=== PATIENT | female | born 1975 | race Caucasian/White ===

== ENCOUNTER 2021-02-23 10:55 | Emergency (ER) | payer OTHER ==
[~2021-02-23] VITALS: Ht 160 cm; Wt 90.0 kg
[~2021-02-23 10:55] MED LIST: LIRA0.6P SQ; LISI1POW MC; METF100P4 MC; OMEG1CAP2 PO
[2021-02-23 11:26] LABS: BASO % 1 % (0-3); EOS # 0.1 x10^3/uL (0.0-0.7); EOS % 2 % (0-3); HEMATOCRIT 25.4 % (36.0-47.0); HEMOGLOBIN 7.5 g/dL (12.0-15.5); LYMPH % 19 % (24-48); MEAN CORPUSCULAR HEMOGLOBIN 19 pg (25-35); MEAN CORPUSCULAR HGB CONC 30 g/dL (31-37); MEAN CORPUSCULAR VOLUME 63 fL (79-100); MONO # 0.3 x10^3/uL (0.0-1.1); MONO % 6 % (0-9); NEUT # 3.8 x10^3uL (1.8-7.7); NEUT % 72 % (31-73); PLATELET COUNT 277 x10^3/uL (140-400); RED BLOOD COUNT 4.01 x10^6/uL (3.50-5.40); WHITE BLOOD COUNT 5.3 x10^3/uL (4.0-11.0)
[2021-02-23] MEDS ORDERED: IV NORMAL SALINE 1,000ML 1,000 ML IV ONE (11:30)
[2021-02-23] MEDS ORDERED: ASPIRIN CHEWABLE 81 MG TABLET. PO ONE (11:30)
--- NOTE | 2021-02-23 11:33 | PHYS DOC ---
Past History Past Medical History: Hypertension Additional Past Medical Histor: tachycardia Past Surgical History: Gastric Bypass, Other Additional Past Surgical Histo: CHildhood open heart, Alcohol Use: None General Adult EDM: Chief Complaint: CHEST PAIN HPI: HPI: 46-year-old female presents via EMS with palpitations and chest pain. The patient started having chest pressure discomfort around 840 this morning. She was at work. She thought it was indigestion so she took some antacids. This did not help. She describes the pain as kind of a central pressure feeling. She had some mild shortness of breath but no diaphoresis. Her coworkers were concerned so they called EMS. When EMS arrived the patient had a very elevated heart rate. During transport her heart rate was in the 170s and her blood pressure was low. They gave her 6 mg of adenosine. This seemed to be effective. The patient's heart rate and blood pressure normalized prior to arrival. Patient states she felt much better after getting the adenosine. She has been feeling well prior to this. She had no other complaints. Denies fever or chills. She was diagnosed by a instrumentation and controls technician with some kind of tachyarrhythmia but has not seen them in the last 2 years. She has been on a steady dose of carvedilol without incident. Review of Systems: Review of Systems: Constitutional: Denies fever or chills Eyes: Denies change in visual acuity HENT: Denies nasal congestion or sore throat Respiratory: Mild shortness of breath Cardiovascular: Chest pain GI: Denies abdominal pain, nausea, vomiting, bloody stools or diarrhea : Denies dysuria Musculoskeletal: Denies back pain or joint pain Integument: Denies rash Neurologic: Denies headache, focal weakness or sensory changes Endocrine: Denies polyuria or polydipsia Lymphatic: Denies swollen glands Psychiatric: Denies depression or anxiety Current Medications: Current Meds: Current Medications Medications (Trade) Dose Ordered Sig/Leonidas Start Time Stop Time Status Last Admin Dose Admin Aspirin (Aspirin Chewable) 324 mg 1X ONCE 02/23/21 11:30 02/23/21 11:31 02/23/21 11:23 324 MG Sodium Chloride 1,000 ml @ 1,000 mls/hr 1X ONCE 02/23/21 11:30 02/23/21 12:29 02/23/21 11:24 1,000 MLS/HR Allergies: Allergies: Allergies Coded Allergies Type Severity Reaction Last Updated Verified No Known Drug Allergies 02/23/21 No Physical Exam: PE: Constitutional: Well developed, well nourished, obese, no acute distress, non- toxic appearance. [] HENT: Normocephalic, atraumatic, bilateral external ears normal, oropharynx moist, no oral exudates, nose normal. [] Eyes: PERRLA, EOMI, conjunctiva normal, no discharge. [] Neck: Normal range of motion, no tenderness, supple, no stridor. [] Cardiovascular: Heart rate 86, regular rhythm, no murmur [] Lungs & Thorax: Bilateral breath sounds clear to auscultation [] Abdomen: Bowel sounds normal, soft, no tenderness, no masses, no pulsatile masses. [] Skin: Warm, dry, no erythema, no rash. large scar on chest wall, old.[] Back: No tenderness, no CVA tenderness. [] Extremities: No tenderness, no cyanosis, no clubbing, ROM intact, no edema. [] Neurologic: Alert and oriented X 3, normal motor function, normal sensory function, no focal deficits noted. [] Psychologic: Affect normal, judgement normal, mood normal. [] Current Patient Data: Vital Signs: Vital Signs Date Time Temp Pulse Resp B/P (MAP) Pulse Ox O2 Delivery O2 Flow Rate FiO2 02/23/21 11:00 99.2 88 18 122/78 (93) 97 EKG: EKG: Sinus rhythm, rate 86, normal axis, no ST elevation or depression. [] Radiology/Procedures: Radiology/Procedures: [] Impressions: EXAM: Chest, single view. HISTORY: Chest pain. COMPARISON: None. FINDINGS: A frontal view of the chest is obtained. There is no infiltrate, pleural effusion or pneumothorax. The heart is normal in size. IMPRESSION: No acute pulmonary finding. Electronically signed by: Caitlyn Aquino MD (02/23/2021 11:32 AM) [id number] DICTATED AND SIGNED BY: CAITLYN AQUINO MD DATE: 02/23/21 1131 CC: JS MORENO DO; MAYRA PARKS MD ~MTH0 0 Heart Score: C/O Chest Pain: Yes HEART Score for Chest Pain: HEART Score for Chest Pain Response (Comments) Value History Moderately Suspicious 1 ECG Normal 0 Age >45 - < 65 1 Risk Factors 1 or 2 Risk Factors 1 Troponin < Normal Limit 0 Total 3 Risk Factors: Risk Factors: DM, Current or recent (<one month) smoker, HTN, HLP, family his tory of CAD, obesity. Risk Scores: Score 0 - 3: 2.5% MACE over next 6 weeks - Discharge Home Score 4 - 6: 20.3% MACE over next 6 weeks - Admit for Clinical Observation Score 7 - 10: 72.7% MACE over next 6 weeks - Early Invasive Strategies Course & Med Decision Making: Course & Med Decision Making Pertinent Labs and Imaging studies reviewed. (See chart for details) The patient's EKG is unremarkable. Her chest x-ray is negative for acute findings. Her labs are remarkable for a slightly elevated troponin. I will repeat her troponin and EKG prior to discharge. Repeat EKG sinus rhythm, rate 65, normal axis, no ST elevations or depressions. Her repeat troponin is elevated at 0.176. I spoke with Dr. Márquez and he would prefer the patient be transferred to [facility]. The patient is in agreement with transfer if necessary. I spoke with the cardiology department at [facility] and they have agreed patient meets criteria for transfer. They have requested 1 mg/kg of Lovenox. I spoke with the hospitalist Dr. Leger and he has accepted the patient for transfer and admission. She will go by ambulance. [] Mari Disclaimer: Mari Disclaimer: This electronic medical record was generated, in whole or in part, using a voice recognition dictation system. Departure Departure: Impression: Primary Impression: Chest pain Qualified Codes: R07.9 - Chest pain, unspecified Additional Impression: SVT (supraventricular tachycardia) Disposition: 02 SHORT TERM HOSPITAL Condition: GUARDED Referrals: MAYRA PARKS MD (PCP) JS MORENO DO February 23, 2021 11:33
[2021-02-23 11:34] LABS: CREATININE 0.7 mg/dL (0.6-1.0); GFR 90.1; POTASSIUM 3.9 mmol/L (3.5-5.1)
--- NOTE | 2021-02-23 11:34 | RAD ---
EXAM: Chest, single view. HISTORY: Chest pain. COMPARISON: None. FINDINGS: A frontal view of the chest is obtained. There is no infiltrate, pleural effusion or pneumo thorax. The heart is normal in size. IMPRESSION: No acute pulmonary finding. Electronically signed by: Caitlyn Clancy MD (02/23/2021 11:32 AM) [id number]
[2021-02-23 11:40] LABS: ALBUMIN 3.3 g/dL (3.4-5.0); TOTAL BILIRUBIN 0.5 mg/dL (0.2-1.0); TOTAL PROTEIN 6.6 g/dL (6.4-8.2)
[2021-02-23 12:06] LABS: ANISOCYTOSIS MOD; HYPOCHROMIA MOD; MICROCYTOSIS MOD
[2021-02-23 12:07] LABS: PLT ESTIMATE ADEQUATE (ADEQUATE)
[2021-02-23 13:05] LABS: BILIRUBIN,URINE NEG (NEG); CLARITY,URINE CLEAR; COLOR,URINE YELLOW; GLUCOSE,URINE NEG (NEG); NITRITE,URINE NEG (NEG); UROBILINOGEN,URINE 0.2 mg/dL (0.2 mg/dL)
[2021-02-23 13:12] LABS: BACTERIA,URINE 0 /HPF (0-FEW); RBC,URINE 0 /HPF (0-2); SQUAMOUS EPITHELIAL CELL,UR FEW /LPF; WBC,URINE 0 /HPF (0-4)
[2021-02-23] MEDS ORDERED: ENOXAPARIN ** NOTE DOSE ** SYRINGE SQ ONE (14:30)
[2021-02-23] MEDS: NITROGLYCERIN SUBLINGUAL 0.4 MG BOTTLE OF 25. SL PRN ×2 (15:00→15:15)
[2021-02-23 16:00] VITALS: BP 126/59
--- NOTE | 2021-02-23 21:04 | EKG ---
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
--- NOTE | 2021-02-23 21:06 | EKG ---
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
== END 2021-02-23 17:22 | disposition short-term general hospital (02) ==
LOC: ER 10:55
DX: I47.1 Supraventricular tachycardia (principal); R07.89 Other chest pain; I10 Essential (primary) hypertension; Z98.84 Bariatric surgery status
CPT/HCPCS: 36415; 71045; 80053; 81001; 84484; 85025; 93005; 96360; 96372; 99285; J1650; J7030